=== PATIENT | female | born 2005 | race Two or more races ===

== ENCOUNTER 2024-07-05 16:53 | Emergency (ER) | payer OTHER, SELFPAY ==
[2024-07-05 17:06] VITALS: BP 138/69; PULSE 92; RESP 18; TEMP 36.6; O2SAT 98; BMI 32.1
--- NOTE | 2024-07-05 17:07 | ED.GENADULT ---
HPI - General Adult General Chief complaint: Extremity Injury, Lower Stated complaint: left first toe injury Time Seen by Provider: 07/05/24 19:55 History of Present Illness ED Provider: Luciana BAUER narrative: The patient is a 18-year-old female who is generally in good health. She is currently 2-1/2 months . She comes to the emergency room because she has been having problems with an ingrown toenail on her left great toe that she says has been bothering her for over a week. She has had mild problems with ingrown toenails in the past but nothing as severe as this. She has had no fevers. Related Data Previous Rx's ?Medication ?Instructions ?Recorded cephalexin 500 mg capsule 500 mg PO QID 5 days #20 caps 07/05/24 Allergies Allergy/AdvReac Type Severity Reaction Status Date / Time No Known Allergies Allergy Verified 07/05/24 17:08 Review of Systems Review of Systems: Yes all other systems are reviewed and are negative PMFSH Social History Social History Smoked in Last 30 Days: No Advance Directives: No Advance Directives Information Provided: No Do you have a plan to hurt others: No Plan Physical Exam ED Vital Signs: Vital Signs - 24 hr 07/05/24 17:06 07/05/24 20:50 07/05/24 21:37 Temperature 98 F 98.2 F 98.2 F Pulse Rate 92 88 88 Respiratory Rate 18 18 18 Blood Pressure 138/69 136/66 136/66 Pulse Oximetry 98 98 98 Oxygen Delivery Method Room Air Room Air BMI result Body Mass Index 32.1 Const Other: The patient is awake and alert. She has the appearance of a healthy 18-year-old. She does not seem in acute distress. HENMT Other: Face is symmetrical, mucous membranes moist Eyes General: appearance normal, both eyes and all related structures Neck Neck: Yes normal visual inspection Resp Effort & Inspection: normal respiratory effort Skin Other: The patient has an ingrown toenail on the medial aspect of the left great toenail. There is a lot of reactive granulation tissue at the paronychial skin on the medial aspect of the nail. There was erythema to the medial aspect of the toe. No lymphangitis. Neuro Other: The patient is awake and alert with a normal mental status. Normal sensation in the left great toe. Extrem Other: The patient has evidence of a significant ingrown toenail on the lateral aspect of the left big toe. There is some mild erythema associated. No purulence. Can move the toe normally. Course Course Course Narrative: RME, this is a rapid medical exam performed by Barber Victor please refer to primary provider for complete H&P- 18 year old female presents for evaluation of left great toe pain. She reports pain and swelling for a few days. Clinically, appears to have infected ingrown toenail with paronychia Medications Administered Discontinued Medications Generic Name Dose Route Start Last Admin Trade Name Joy PRN Reason Stop Dose Admin Bacitracin 1 appl 07/05/24 20:41 07/05/24 21:03 Bacitracin Oint 0.9 Gm Packet TOPICAL 07/05/24 20:42 1 appl ONCE ONE Administration Protocol Cephalexin HCl 500 mg 07/05/24 20:38 07/05/24 21:03 Cephalexin 500 Mg Capsule PO 07/05/24 20:39 500 mg ONCE ONE Administration Lidocaine HCl 10 ml 07/05/24 20:05 07/05/24 20:13 Lidocaine Hcl 1 % Mpf 5 Ml Vial INFILTRATI 07/05/24 20:06 10 ml ONCE ONE Administration Procedures Nail Trephination Time out: Yes Location (toes): first digit ( significantly ingrown toenail on the medial side of the nail of the left great toe. Significant reactive granulation tissue present on the paronychial skin) Sterile prep: betadine Method of drainage: other (Administered digital block c 10 mL 1% lidocaine with a 27 gauge needle under sterile conditions, undermined the lateral portion of nail with scissors. I then cut through nail to the base of the nail and removed lateral aspect of nail) Procedure successful: Yes Patient tolerated procedure: No Complications Medical Decision Making Medical Decision Making MDM Narrative: Healthy 18-year-old who was for the 1st time June 2-1/2 months she says. She left great toe where there is obvious evidence of a significant ingrown toenail which has caused a lot of reactive granulation to the paronychial skin lateral aspect of the nail of the left big toe. I explained to the patient that she would require a procedure for removal of a portion of the nail to relieve the irritated skin. The patient understood this and agreed to proceed. I prepped the skin of the toe with Betadine including the base of the toe where I administered a digital block. I administered a digital block to the left great toe by injecting a total of 10 mL of 1% plain lidocaine divided between the 2 sides of the base of the toe. Once good anesthesia was achieved I then used scissors to undermine the lateral side of the nail from the nail bed. I then cut longitudinally down the nail to remove the lateral portion of the nail. This was done removing the lateral portion of the nail intact down to the proximal end of the nail. The patient tolerated the procedure well. She was placed on a short course of cephalexin. She has been receiving care for this through [facility] in [place]. She will be advised to contact them to see if they have any mailroom coordinator available for follow up. She was given an rest and keep the foot elevated. Discharge Plan Discharge Clinical Impression: Ingrown left big toenail, 10 weeks gestation of Patient Disposition: Home, Self-Care Instructions: Nail Removal (ED), Partial Nail Avulsion for Ingrown Nail (DC) Additional Instructions: A portion of your nail was removed to relieve the pressure on the skin next to the nail. Please keep the wound clean and dry and covered with a Band-Aid. Wear the shoe provided for the 1st several days. Keep your foot elevated often. Please contact your OBGYN office tomorrow to see if [facility] has a foot doctor, a mailroom coordinator. Perhaps they can help you get into see a mailroom coordinator. Otherwise take the antibiotics as prescribed, 4 times a day, until done. Keep your appointment on July 13 with your OBGYN. You may use acetaminophen (Tylenol) as needed for pain. Return to the emergency room if things do not seem to be going well. Prescriptions: New cephalexin 500 mg capsule 500 mg PO QID 5 Days Qty: 20 0RF Referrals: [facility]ette [facility] [Provider Group] (ingrown toenail, ) Interventions: ED Discharge Assessment Last Done: 07/05/24 21:37 Discharge Date/Time: 07/05/24 21:38 Print Language: Albanian
--- NOTE | 2024-07-05 19:27 | PC.NURSE ---
database analyst called
[2024-07-05] MEDS: Lidocaine HCl 1 % MPF 5 ML VIAL 10 ML INFILTRATI (20:13)
[2024-07-05 20:50] VITALS: BP 136/66; PULSE 88; RESP 18; TEMP 36.8; O2SAT 98
[2024-07-05] MEDS: Bacitracin Oint 0.9 GM PACKET 1 APPL TOPICAL (21:03)
[2024-07-05] MEDS: cephALEXin 500 MG CAPSULE PO (21:03)
[2024-07-05 21:37] VITALS: BP 136/66; PULSE 88; RESP 18; TEMP 36.8; O2SAT 98
== END 2024-07-05 21:38 | disposition home or self-care (01) ==
PROVIDERS: Emergency Provider Emergency Medicine
DX: O26.891 Other specified pregnancy related conditions, first trimester (principal); L60.0 Ingrowing nail; Z3A.10 10 weeks gestation of pregnancy
CPT/HCPCS: 11740; 99284; J2003